=== PATIENT | male | born 1985 | race Caucasian/White ===

== ENCOUNTER 2016-06-08 12:33 | Emergency (ER) | payer OTHER ==
[2016-06-08 12:47] VITALS: BP 121/75; PULSE 77; RESP 18; TEMP 98.3
--- NOTE | 2016-06-08 13:07 | ED ---
Upper Extremity HPI - General Chief Complaint: Extremity Injury, Upper Stated Complaint: Finger Injury/Pain Time Seen by Provider: 06/08/16 12:57 Source: patient, RN notes reviewed, old records reviewed Mode of arrival: ambulatory Limitations: no limitations - History of Present Illness Initial Comments: Patient is 30-year-old male chief complaint of left index finger pain after course around his girlfriend and believes he jammed it. Patient reports he jammed the same finger approximately one month ago applying mask well. He states that it slowly got better. He states that after the injury today seems much worse. He states he has pain with flexion and extension. Patient noticed swelling over the finger. He is right-handed. Denies any other associated symptoms from the injuries. Patient denies any recent fever, chills, shortness of breath, chest pain, back pain, abdominal pain, nausea vomiting, numbness or tingling, dysuria or hematuria, constipation or diarrhea, headaches or visual changes, or any other current symptoms Place: home - Related Data Home Medications Medication Instructions Recorded Confirmed No Known Home Medications [No 11/22/13 11/22/13 Known Home Medications] Allergies Allergy/AdvReac Type Severity Reaction Status Date / Time No Known Allergies Allergy Verified 06/08/16 12:47 Review of Systems ROS Statement: Those systems with pertinent positive or pertinent negative responses have been documented in the HPI. ROS Other: All systems not noted in ROS Statement are negative. Past Medical History Past Medical History: No Reported History History of Any Multi-Drug Resistant Organisms: None Reported Past Surgical History: Orthopedic Surgery Additional Past Surgical History / Comment(s): left arm, right hand Past Psychological History: No Psychological Hx Reported Smoking Status: Never smoker Past Alcohol Use History: Occasional Past Drug Use History: None Reported General Exam - General Exam Comments Initial Comments: Well-appearing 30-year-old male. No distress. General: Well appearing, well nourished, in no distress. Oriented x 3, normal mood and affect . Ambulating without difficulty. Skin: Good turgor, no rash, unusual bruising or prominent lesions Hair: Normal texture and distribution. HEENT: Head: Normocephalic, atraumatic, no visible or palpable masses, depressions, or scaring. Eyes: Visual acuity intact, conjunctiva clear, sclera non-icteric, EOM intact, PERRL. Ears: EACs clear, TMs translucent & cone of light visualized. hearing intact. Nose: No external lesions, mucosa non-inflamed, septum and turbinates normal Mouth: Mucous membranes moist, no mucosal lesions. Neck: Supple, without lesions, bruits, or adenopathy, thyroid non-enlarged and non-tender Heart: No cardiomegaly or thrills; regular rate and rhythm, no murmur or gallop Lungs: Clear to auscultation and percussion Abdomen: Bowel sounds normal, no tenderness, organomegaly, masses, or hernia Back: Spine normal without deformity or tenderness, no CVA tenderness Extremities: Patient has swelling and bruising over the proximal interphalangeal joint of the left second finger. Patient is able to flex and extend the finger. Good capillary refill. Patient has no numbness or tingling over the hand or finger. Denies any other pain in the extremities. No evidence of any other swelling, erythema or decreased range of motion of extremities. Musculoskeletal: Normal gait and station. No misalignment, asymmetry, crepitation, defects, tenderness, masses, effusions, decreased range of motion, instability, atrophy or abnormal strength or tone in the head, neck, spine, ribs , pelvis or extremities. Neurologic: CN 2-12 normal. Sensation to pain, touch, and proprioception normal. DTRs normal in upper and lower extremities. No pathologic reflexes. Psychiatric: Oriented X3, intact recent and remote memory, judgment and insight , normal mood and affect. Limitations: no limitations Course Vital Signs 06/08/16 12:43 Temperature 98.3 F Pulse Rate 77 Respiratory 18 Rate Blood Pressure 121/75 O2 Sat by Pulse 99 Oximetry Medical Decision Making - Medical Decision Making She is a 30-year-old male with chief complaint of left second finger pain after jamming it. Patient has significant swelling over the proximal interphalangeal joint. X-rays reviewed and shows a small avulsion fracture over the second interphalangeal joint. Patient will be placed in a finger splint. Also discussed dinesh taping. Patient has been advised to follow-up with orthopedic if his pain continues to persist P patient received treatment plan will comply. Return parameters were discussed. - Radiology Data Radiology results: report reviewed Avulsion type fracture from the volar base of the second middle phalanx. Initial counter) posttraumatic finger. Disposition Clinical Impression: Avulsion fracture of middle phalanx of finger Disposition: HOME SELF-CARE Condition: Good Instructions: Finger Fracture (ED) Additional Instructions: Patient needs remain in finger splint. Patient should keep this on at all times for the next 2 weeks. Follow-up with orthopedic if symptoms continue to persist. Return to the emergency department if any alarming signs or symptoms occur. Advised apply ice over the finger is much as possible. Referrals: Nonstaff,Physician [Primary Care Provider] - 1-2 days Baldo Romero MD [STAFF PHYSICIAN] - 1-2 days Time of Disposition: 13:21
--- NOTE | 2016-06-08 13:16 | XR ---
EXAMINATION TYPE: XR finger LT DATE OF EXAM: 06/08/2016 1:08 PM COMPARISON: NONE HISTORY: Jamming injury with pain. TECHNIQUE: 3 views of left second finger are acquired. FINDINGS: There is mild to moderate soft tissue swelling centered near PIP joint. Seen best on latera l view there is avulsion type fracture at volar base of second middle phalanx. IMPRESSION: There is acute avulsion type fracture from the volar base of the second middle phalanx. (Initial encounter closed type post traumatic fracture)
== END 2016-06-08 13:46 | disposition home or self-care (01) ==
LOC: EC 12:33
DX: S62.601A Fracture of unspecified phalanx of left index finger, initial encounter for closed fracture (principal); X58.XXXA Exposure to other specified factors, initial encounter
CPT/HCPCS: 99283

== ENCOUNTER 2017-04-10 05:24 | Emergency (ER) | payer OTHER ==
--- NOTE | 2017-04-10 06:50 | ED ---
Upper Extremity HPI - General Chief Complaint: Extremity Injury, Upper Stated Complaint: [facility]-hand injury Time Seen by Provider: 04/10/17 05:33 Source: patient Mode of arrival: ambulatory Limitations: no limitations - History of Present Illness Complaint: Injury to:: left, hand Onset/Timin -: hour(s) Other Injuries: none Handedness: right Place: work Improves With: none Worsens With: none - Related Data Home Medications Medication Instructions Recorded Confirmed No Known Home Medications [No 11/22/13 11/22/13 Known Home Medications] Allergies Allergy/AdvReac Type Severity Reaction Status Date / Time No Known Allergies Allergy Verified 06/08/16 12:47 Review of Systems ROS Statement: Those systems with pertinent positive or pertinent negative responses have been documented in the HPI. ROS Other: All systems not noted in ROS Statement are negative. Constitutional: Denies: fever, weakness Neurological: Denies: weakness, numbness, paresthesias Past Medical History Past Medical History: No Reported History History of Any Multi-Drug Resistant Organisms: None Reported Past Surgical History: Orthopedic Surgery Additional Past Surgical History / Comment(s): left arm, right hand Past Psychological History: No Psychological Hx Reported Smoking Status: Never smoker Past Alcohol Use History: None Reported Past Drug Use History: None Reported General Exam Limitations: no limitations General appearance: alert, in no apparent distress Neurological exam: Present: alert, motor sensory deficit Skin exam: Present: warm, dry, normal color, other (1 cm laceration palmar aspect of left hand.) Course Vital Signs 04/10/17 05:28 Temperature 97.8 F Pulse Rate 71 Respiratory 16 Rate Blood Pressure 131/58 O2 Sat by Pulse 99 Oximetry Procedures - Laceration Laceration #1 Consent Obtained: verbal consent Time Out Performed: Yes Indication: laceration Site: hand Description: linear Depth: simple, single layer Anesthetic Used: lidocaine 1% Anesthesia Technique: local infiltration Type of Sutures: nylon Size of Sutures: 5-0 Number of Sutures: 2 Technique: simple, interrupted Patient Tolerated Procedure: well Medical Decision Making - Medical Decision Making Patient is a 31-year-old man with palm laceration to left hand. He is not flexing the fourth and fifth digit well, stating that this is causing pain. He also complains of some tingling to those digits. Will have patient follow-up with hand surgery. Primary closure performed. Disposition Clinical Impression: Hand laceration Disposition: HOME SELF-CARE Condition: Fair Instructions: Care For Your Stitches (ED), Laceration (ED) Referrals: None,Stated [Primary Care Provider] - 1-2 days Demario Perez DO [Doctor of Osteopathic Medicine] - 1-2 days
[2017-04-10 07:05] VITALS: BP 119/79; PULSE 85; RESP 18; TEMP 98.2
--- NOTE | 2017-04-10 09:08 | XR ---
EXAMINATION TYPE: XR hand complete LT DATE OF EXAM: 04/10/2017 CLINICAL HISTORY: pain TECHNIQUE: Frontal, lateral and oblique images of the left hand are obtained. COMPARISON: None. FINDINGS: There is no acute fracture/dislocation evident. The joint spaces appear within normal limi ts. The overlying soft tissue appears unremarkable. No radiopaque foreign body identified with certa inty. IMPRESSION: There is no acute fracture or dislocation. ICD 10 NO FRACTURE, INITIAL EVALUATION
== END 2017-04-10 07:03 | disposition home or self-care (01) ==
LOC: EC 05:24
DX: S61.412A Laceration without foreign body of left hand, initial encounter (principal); Z98.890 Other specified postprocedural states; W31.9XXA Contact with unspecified machinery, initial encounter; Y92.69 Other specified industrial and construction area as the place of occurrence of the external cause; Y99.0 Civilian activity done for income or pay
CPT/HCPCS: 12001; 99283

== ENCOUNTER → 2018-05-19 | Outpatient (CLI) | payer BC ==
--- NOTE | 2018-05-20 07:15 | XR ---
EXAMINATION TYPE: XR chest 2V DATE OF EXAM: 05/19/2018 COMPARISON: NONE HISTORY: Chest pain TECHNIQUE: Frontal and lateral views of the chest are obtained. FINDINGS: There is no focal air space opacity. No evidence for pneumothorax. No pleural effusion. The cardiac silhouette size is within normal limits. The osseous structures are grossly intact. IMPRESSION: 1. No acute cardiopulmonary process.
== END | disposition home or self-care (01) ==
LOC: RADXRMAIN 17:18
PROVIDERS: ATTEND Physician Assistant
DX: R07.89 Other chest pain (principal)
CPT/HCPCS: 71046

== ENCOUNTER 2021-01-29 10:26 | Emergency (ER) | payer BC, OTHER ==
[2021-01-29] MEDS ORDERED: LIDOCAINE 1% INJ 10MG/ML (20 ML MDV) SQ ONE (11:20)
--- NOTE | 2021-01-29 11:30 | ED ---
General Adult HPI - General Chief complaint: Animal Bite Stated complaint: Dog bite Time Seen by Provider: 01/29/21 11:00 Source: patient Mode of arrival: ambulatory - History of Present Illness Initial comments: Dictation was produced using [employer] dictation software. please excuse any grammatical, word or spelling errors. Chief Complaint: 35-year-old male presents emergency department for dog bite History of Present Illness: This 35-year-old male presents emergency department for dog bite. Patient has a dog and another dog from the senior living. The 2 dogs got into a confrontation. The patient tried to stop a fight when he was bitten in the hands bilaterally. Patient is a laceration to the fourth digit on his right hand. He has suffered otherwise puncture wounds to the mostly to the right hand and some on the left. Patient's tetanus is up-to-date. The ROS documented in this emergency department record has been reviewed and confirmed by me. Those systems with pertinent positive or negative responses have been documented in the HPI. All other systems are other negative and/or noncontributory. PHYSICAL EXAM: General Impression: Alert and oriented x3, not in acute distress HEENT: Normocephalic atraumatic, extra-ocular movements intact, pupils equal and reactive to light bilaterally, mucous membranes moist. Chest: Able to complete full sentences, no retractions, no tachypnea Motor: no focal deficits noted Neurological: CN II-XII grossly intact, no focal motor or sensory deficits noted Skin: Puncture wounds to the bilateral forearms, there is a superficial linear abrasion to the second digit on the right hand. There is a laceration to the fourth digit on the right hand medially with exposed fat tissue Psych: Normal affect and mood ED course: 35-year-old male presents with dog bite injuries. He has mostly puncture wounds to his bilateral extremities. He does have a laceration to one of his digits on the right hand. Vital signs upon arrival are within acceptable limits. - Related Data Previous Rx's Medication Instructions Recorded Amoxic-Pot Clav 875-125Mg 1 tab PO BID 10 Days #20 tab 01/29/21 [Augmentin 875-125] Allergies Allergy/AdvReac Type Severity Reaction Status Date / Time No Known Allergies Allergy Verified 01/29/21 11:31 Review of Systems ROS Statement: Those systems with pertinent positive or pertinent negative responses have been documented in the HPI. ROS Other: All systems not noted in ROS Statement are negative. Past Medical History Past Medical History: No Reported History History of Any Multi-Drug Resistant Organisms: None Reported Past Surgical History: Orthopedic Surgery Additional Past Surgical History / Comment(s): left arm, right hand Past Psychological History: No Psychological Hx Reported Smoking Status: Never smoker Past Alcohol Use History: None Reported Past Drug Use History: None Reported Course Vital Signs 01/29/21 10:55 Temperature 98.1 F Pulse Rate 91 Respiratory 16 Rate Blood Pressure 129/86 O2 Sat by Pulse 95 Oximetry Procedures - Laceration Laceration #1 Consent Obtained: verbal consent Indication: laceration Site: hand Size (cm): 2 Description: linear Depth: simple, single layer Anesthetic Used: lidocaine 1% Type of Sutures: nylon Size of Sutures: 5-0 Technique: simple, interrupted Disposition Clinical Impression: Bite by animal Disposition: HOME SELF-CARE Condition: Fair Instructions (If sedation given, give patient instructions): Animal Bite (ED), Care For Your Stitches (ED) Additional Instructions: suture removal in 10-14 days Seek medical attention for signs of infection Prescriptions: Amoxic-Pot Clav 875-125Mg [Augmentin 875-125] 1 tab PO BID 10 Days #20 tab Is patient prescribed a controlled substance at d/c from ED?: No Referrals: None,Stated [Primary Care Provider] - 1-2 days
[2021-01-29 13:11] VITALS: BP 120/83; PULSE 76; RESP 18; TEMP 98
== END 2021-01-29 13:11 | disposition home or self-care (01) ==
LOC: EC 10:26
DX: S61.451A Open bite of right hand, initial encounter (principal); S61.452A Open bite of left hand, initial encounter; W54.0XXA Bitten by dog, initial encounter
CPT/HCPCS: 99283; 12001; J2001